=== PATIENT | female | born 1955 | race Caucasian/White ===

== ENCOUNTER → 2019-05-18 | Outpatient (CLI) | payer SELFPAY ==
[2019-05-18 07:19] LABS: HEMATOCRIT 51.9 % (37.0-47.0); HEMOGLOBIN 17.3 g/dL (12.5-16.0); MEAN CELL VOLUME 83 fl (78-100); MEAN CORPUSCULAR HEMOGLOBIN 28 pg (27-31); MEAN CORPUSCULAR HGB CONC 33 g/dL (33-37); MEAN PLATELET VOLUME 10.8 fl (7.4-10.4); RED BLOOD COUNT 6.25 M/mm3 (4.10-5.30); RED CELL DISTRIBUTION WIDTH 16.1 % (11.5-14.5); WHITE BLOOD COUNT 15.2 K/mm3 (4.8-10.8)
[2019-05-18 08:08] LABS: PLATELET COUNT 1203 K/mm3 (130-400)
[2019-05-18 08:09] LABS: LYMPHOCYTE 13 % (20-51); MONOCYTE 5 % (3-10); NEUTROPHILS 80 % (42-75)
== END ==
LOC: LAB 07:07
PROVIDERS: Internal Medicine
DX: D75.1 Secondary polycythemia (principal)

== ENCOUNTER → 2019-06-01 | Outpatient (CLI) | payer SELFPAY ==
[2019-06-01 13:18] LABS: BASO # 0.1 (0.02-0.10); EOS # 0.2 (0.04-0.40); EOS % 1.9 % (1.0-5.0); HEMATOCRIT 45.5 % (37.0-47.0); LYMPH# 1.8 (1.50-4.00); MEAN CELL VOLUME 87 fl (78-100); MEAN CORPUSCULAR HEMOGLOBIN 29 pg (27-31); MEAN CORPUSCULAR HGB CONC 33 g/dL (33-37); MEAN PLATELET VOLUME 10.2 fl (7.4-10.4); MONO # 0.6 (0.20-0.80); RED BLOOD COUNT 5.25 M/mm3 (4.10-5.30); WHITE BLOOD COUNT 12.4 K/mm3 (4.8-10.8)
[2019-06-01 13:19] LABS: NEU # 9.6 (1.40-6.50); PLATELET COUNT 1042 K/mm3 (130-400)
== END ==
LOC: LAB 12:59
PROVIDERS: Internal Medicine
DX: D75.1 Secondary polycythemia (principal)

== ENCOUNTER → 2019-06-15 | Outpatient (CLI) | payer SELFPAY ==
[2019-06-15 19:08] LABS: HEMATOCRIT 43.7 % (37.0-47.0); HEMOGLOBIN 14.5 g/dL (12.5-16.0); RED BLOOD COUNT 4.84 M/mm3 (4.10-5.30); WHITE BLOOD COUNT 10.8 K/mm3 (4.8-10.8)
[2019-06-15 19:09] LABS: MEAN CELL VOLUME 90 fl (78-100); MEAN CORPUSCULAR HEMOGLOBIN 30 pg (27-31); MEAN CORPUSCULAR HGB CONC 33 g/dL (33-37); MEAN PLATELET VOLUME 10.4 fl (7.4-10.4); PLATELET COUNT 862 K/mm3 (130-400); RED CELL DISTRIBUTION WIDTH 19.1 % (11.5-14.5)
[2019-06-15 19:10] LABS: EOS % 2.3 % (1.0-5.0); LYMPH# 1.9 (1.50-4.00); MONO # 0.7 (0.20-0.80); NEU # 7.9 (1.40-6.50)
[2019-06-15 19:11] LABS: BASO # 0.1 (0.02-0.10); EOS # 0.3 (0.04-0.40)
== END ==
LOC: LAB 15:06
PROVIDERS: Internal Medicine
DX: D75.9 Disease of blood and blood-forming organs, unspecified (principal)

== ENCOUNTER → 2019-07-20 | Outpatient (CLI) | payer SELFPAY ==
[2019-07-20 07:16] LABS: EOS # 0.1 (0.04-0.40); EOS % 2.1 % (1.0-5.0); HEMATOCRIT 41.6 % (37.0-47.0); HEMOGLOBIN 13.7 g/dL (12.5-16.0); MEAN CELL VOLUME 96 fl (78-100); MEAN CORPUSCULAR HEMOGLOBIN 32 pg (27-31); MEAN CORPUSCULAR HGB CONC 33 g/dL (33-37); MEAN PLATELET VOLUME 10.1 fl (7.4-10.4); MONO # 0.3 (0.20-0.80); NEU # 3.9 (1.40-6.50); PLATELET COUNT 262 K/mm3 (130-400); RED BLOOD COUNT 4.33 M/mm3 (4.10-5.30); RED CELL DISTRIBUTION WIDTH 17.4 % (11.5-14.5); WHITE BLOOD COUNT 5.3 K/mm3 (4.8-10.8)
== END ==
LOC: LAB 07:06
PROVIDERS: Internal Medicine
DX: D75.1 Secondary polycythemia (principal)

== ENCOUNTER → 2019-08-31 | Outpatient (CLI) | payer SELFPAY ==
[2019-08-31 07:35] LABS: EOS # 0.1 (0.04-0.40); EOS % 1.3 % (1.0-5.0); HEMATOCRIT 37.4 % (37.0-47.0); HEMOGLOBIN 12.8 g/dL (12.5-16.0); LYMPH# 0.9 (1.50-4.00); MEAN CELL VOLUME 101 fl (78-100); MEAN CORPUSCULAR HEMOGLOBIN 35 pg (27-31); MEAN CORPUSCULAR HGB CONC 34 g/dL (33-37); MEAN PLATELET VOLUME 10.5 fl (7.4-10.4); MONO # 0.3 (0.20-0.80); NEU # 3.9 (1.40-6.50); PLATELET COUNT 141 K/mm3 (130-400); RED BLOOD COUNT 3.71 M/mm3 (4.10-5.30); RED CELL DISTRIBUTION WIDTH 17.4 % (11.5-14.5); WHITE BLOOD COUNT 5.2 K/mm3 (4.8-10.8)
== END ==
LOC: LAB 07:18
PROVIDERS: Internal Medicine
DX: D75.1 Secondary polycythemia (principal)

== ENCOUNTER → 2019-09-21 | Outpatient (CLI) | payer SELFPAY ==
[2019-09-21 07:11] LABS: EOS % 0.6 % (1.0-5.0); HEMOGLOBIN 12.8 g/dL (12.5-16.0); MEAN CELL VOLUME 104 fl (78-100); MEAN CORPUSCULAR HGB CONC 35 g/dL (33-37); MEAN PLATELET VOLUME 9.8 fl (7.4-10.4); MONO # 0.3 (0.20-0.80); NEU # 2.1 (1.40-6.50); PLATELET COUNT 299 K/mm3 (130-400); RED BLOOD COUNT 3.55 M/mm3 (4.10-5.30); WHITE BLOOD COUNT 3.4 K/mm3 (4.8-10.8)
[2019-09-21 07:29] LABS: MEAN CORPUSCULAR HEMOGLOBIN 36 pg (27-31); RED CELL DISTRIBUTION WIDTH 18.3 % (11.5-14.5)
== END ==
LOC: LAB 07:00
PROVIDERS: Internal Medicine
DX: D75.1 Secondary polycythemia (principal)

== ENCOUNTER → 2019-10-12 | Outpatient (CLI) | payer SELFPAY ==
[2019-10-12 08:01] LABS: EOS # 0.1 (0.04-0.40); EOS % 1.2 % (1.0-5.0); HEMATOCRIT 36.9 % (37.0-47.0); HEMOGLOBIN 12.7 g/dL (12.5-16.0); MEAN CELL VOLUME 110 fl (78-100); MEAN CORPUSCULAR HGB CONC 34 g/dL (33-37); MEAN PLATELET VOLUME 10.5 fl (7.4-10.4); MONO # 0.3 (0.20-0.80); NEU # 3.8 (1.40-6.50); PLATELET COUNT 103 K/mm3 (130-400); RED BLOOD COUNT 3.36 M/mm3 (4.10-5.30); RED CELL DISTRIBUTION WIDTH 16.6 % (11.5-14.5); WHITE BLOOD COUNT 5.2 K/mm3 (4.8-10.8)
[2019-10-12 08:06] LABS: MEAN CORPUSCULAR HEMOGLOBIN 38 pg (27-31)
== END ==
LOC: LAB 07:48
PROVIDERS: Internal Medicine
DX: D75.1 Secondary polycythemia (principal)

== ENCOUNTER → 2019-11-09 | Outpatient (CLI) | payer SELFPAY ==
[2019-11-09 14:06] LABS: EOS % 0.3 % (1.0-5.0); HEMATOCRIT 24.5 % (37.0-47.0); HEMOGLOBIN 7.9 g/dL (12.5-16.0); MEAN CELL VOLUME 123 fl (78-100); MEAN CORPUSCULAR HEMOGLOBIN 40 pg (27-31); MEAN CORPUSCULAR HGB CONC 32 g/dL (33-37); MEAN PLATELET VOLUME 10.2 fl (7.4-10.4); MONO # 0.6 (0.20-0.80); NEU # 4.9 (1.40-6.50); PLATELET COUNT 386 K/mm3 (130-400); RED CELL DISTRIBUTION WIDTH 16.2 % (11.5-14.5); WHITE BLOOD COUNT 6.6 K/mm3 (4.8-10.8)
== END ==
LOC: LAB 13:43
PROVIDERS: Internal Medicine
DX: D75.1 Secondary polycythemia (principal)

== ENCOUNTER → 2019-11-10 | Outpatient (CLI) | payer SELFPAY ==
[2019-11-10] VITALS (10 sets, daily range): BP systolic 109–141; BP diastolic 51–56
[~2019-11-10] VITALS: Ht 162.6 cm; Wt 59.1 kg
== END ==
LOC: LAB 08:42 → AMSURD 08:42
DX: D47.1 Chronic myeloproliferative disease (principal); D75.1 Secondary polycythemia
CPT/HCPCS: J7050; P9016

== ENCOUNTER → 2019-11-16 | Outpatient (CLI) | payer SELFPAY ==
[2019-11-10 14:00] VITALS: BP 140/55
[2019-11-16 09:28] LABS: HEMATOCRIT 36.8 % (37.0-47.0); HEMOGLOBIN 11.9 g/dL (12.5-16.0); MEAN CELL VOLUME 113 fl (78-100); MEAN CORPUSCULAR HGB CONC 32 g/dL (33-37); MEAN PLATELET VOLUME 10.6 fl (7.4-10.4); PLATELET COUNT 310 K/mm3 (130-400); RED BLOOD COUNT 3.27 M/mm3 (4.10-5.30); WHITE BLOOD COUNT 6.5 K/mm3 (4.8-10.8)
[2019-11-16 10:01] LABS: MEAN CORPUSCULAR HEMOGLOBIN 36 pg (27-31)
[2019-11-16 10:27] LABS: LYMPHOCYTE 8 % (20-51); MONOCYTE 5 % (3-10); NEUTROPHILS 86 % (42-75); OVALOCYTES 1+
== END ==
LOC: LAB 09:09
PROVIDERS: Internal Medicine
DX: D75.9 Disease of blood and blood-forming organs, unspecified (principal)

== ENCOUNTER → 2019-12-07 | Outpatient (CLI) | payer SELFPAY ==
[2019-11-10 14:00] VITALS: BP 140/55
[2019-12-07 11:08] LABS: EOS # 0.1 (0.04-0.40); EOS % 1.3 % (1.0-5.0); HEMATOCRIT 40.3 % (37.0-47.0); HEMOGLOBIN 13.4 g/dL (12.5-16.0); LYMPH# 1.4 (1.50-4.00); MEAN CELL VOLUME 106 fl (78-100); MEAN CORPUSCULAR HEMOGLOBIN 35 pg (27-31); MEAN CORPUSCULAR HGB CONC 33 g/dL (33-37); MEAN PLATELET VOLUME 10.8 fl (7.4-10.4); MONO # 0.4 (0.20-0.80); NEU # 5.8 (1.40-6.50); PLATELET COUNT 280 K/mm3 (130-400); RED BLOOD COUNT 3.79 M/mm3 (4.10-5.30); RED CELL DISTRIBUTION WIDTH 16.2 % (11.5-14.5); WHITE BLOOD COUNT 7.8 K/mm3 (4.8-10.8)
== END ==
LOC: LAB 10:55
PROVIDERS: Internal Medicine
DX: D47.1 Chronic myeloproliferative disease (principal)

== ENCOUNTER → 2020-01-04 | Outpatient (CLI) | payer SELFPAY ==
[2019-11-10 14:00] VITALS: BP 140/55
[2020-01-04 09:08] LABS: EOS # 0.1 (0.04-0.40); HEMATOCRIT 39.3 % (37.0-47.0); HEMOGLOBIN 13.2 g/dL (12.5-16.0); LYMPH# 1.2 (1.50-4.00); MEAN CELL VOLUME 109 fl (78-100); MEAN CORPUSCULAR HGB CONC 34 g/dL (33-37); MEAN PLATELET VOLUME 9.6 fl (7.4-10.4); MONO # 0.3 (0.20-0.80); NEU # 3.5 (1.40-6.50); PLATELET COUNT 296 K/mm3 (130-400); RED BLOOD COUNT 3.62 M/mm3 (4.10-5.30); RED CELL DISTRIBUTION WIDTH 15.8 % (11.5-14.5)
[2020-01-04 09:15] LABS: ALBUMIN 4.2 g/dL (3.4-4.8)
[2020-01-04 09:16] LABS: POTASSIUM 4.8 mmol/L (3.5-5.1)
[2020-01-04 09:17] LABS: CALCIUM 9.4 mg/dL (8.3-10.5)
[2020-01-04 09:18] LABS: TOTAL PROTEIN 7.2 g/dL (6.2-8.1)
[2020-01-04 09:20] LABS: TOTAL BILIRUBIN 0.6 mg/dL (0.2-1.2)
[2020-01-04 09:30] LABS: MEAN CORPUSCULAR HEMOGLOBIN 37 pg (27-31)
== END ==
LOC: LAB 08:46
PROVIDERS: Internal Medicine
DX: D47.1 Chronic myeloproliferative disease (principal)

== ENCOUNTER → 2020-02-08 | Outpatient (CLI) | payer SELFPAY ==
[2019-11-10 14:00] VITALS: BP 140/55
[2020-02-08 10:13] LABS: EOS # 0.1 (0.04-0.40); EOS % 1.1 % (1.0-5.0); HEMATOCRIT 38.8 % (37.0-47.0); HEMOGLOBIN 13.1 g/dL (12.5-16.0); LYMPH# 1.5 (1.50-4.00); MEAN CELL VOLUME 109 fl (78-100); MEAN CORPUSCULAR HGB CONC 34 g/dL (33-37); MEAN PLATELET VOLUME 9.5 fl (7.4-10.4); MONO # 0.4 (0.20-0.80); NEU # 3.6 (1.40-6.50); PLATELET COUNT 347 K/mm3 (130-400); RED BLOOD COUNT 3.56 M/mm3 (4.10-5.30); RED CELL DISTRIBUTION WIDTH 14.3 % (11.5-14.5); WHITE BLOOD COUNT 5.6 K/mm3 (4.8-10.8)
[2020-02-08 10:14] LABS: MEAN CORPUSCULAR HEMOGLOBIN 37 pg (27-31)
== END ==
LOC: LAB 09:58
PROVIDERS: Internal Medicine
DX: D47.1 Chronic myeloproliferative disease (principal)

== ENCOUNTER → 2020-03-30 | Outpatient (CLI) | payer SELFPAY ==
[2019-11-10 14:00] VITALS: BP 140/55
[2020-03-30 10:15] LABS: EOS # 0.1 (0.04-0.40); EOS % 1.8 % (1.0-5.0); HEMATOCRIT 38.7 % (37.0-47.0); HEMOGLOBIN 12.8 g/dL (12.5-16.0); LYMPH# 1.3 (1.50-4.00); MEAN CELL VOLUME 111 fl (78-100); MEAN CORPUSCULAR HGB CONC 33 g/dL (33-37); MEAN PLATELET VOLUME 9.6 fl (7.4-10.4); MONO # 0.5 (0.20-0.80); NEU # 4.2 (1.40-6.50); PLATELET COUNT 344 K/mm3 (130-400); RED CELL DISTRIBUTION WIDTH 11.6 % (11.5-14.5); WHITE BLOOD COUNT 6.2 K/mm3 (4.8-10.8)
[2020-03-30 10:19] LABS: MEAN CORPUSCULAR HEMOGLOBIN 37 pg (27-31)
== END ==
LOC: LAB 10:01
PROVIDERS: Internal Medicine
DX: D47.1 Chronic myeloproliferative disease (principal)